=== PATIENT | male | born 1965 | race Caucasian/White ===

== ENCOUNTER 2017-03-27 20:26 | Outpatient (CLI) | payer MEDICARE, MEDICAID | END 2017-03-27 20:27 | disposition critical access hospital (66) | LOC: EMS 20:26 | PROVIDERS: ATTEND Surgery | DX: R56.9 Unspecified convulsions (principal) | CPT/HCPCS: A0425; A0429 ==

== ENCOUNTER 2017-03-27 20:46 | Emergency (ER) | payer MEDICARE, MEDICAID ==
--- NOTE | 2017-03-27 20:54 | ED Physician Documentation ---
PD HPI SEIZURE - Stated complaint Stated Complaint: SEIZURE - Chief complaint Chief Complaint: Neuro - History obtained from History obtained from: Patient, EMS - History of Present Illness Timing - onset: How many minutes ago (45) Witnessed: Witnessed Number of seizures: Single, Lasted minutes (2) Description of seizure activity: Generalized Injury during seizure: Fell, Head injury Associated symptoms: No: Headache, Vision changes, Chest pain History of seizures: Known seizure disorder, Prior TBI Contributing factors: Sleep deprivation Similar symptoms before: Work up / diagnostics, Treatment, Follow up Recently seen: Not recently seen - Additional information Additional information: Patient is 51 year old male with a history of a prior tbi and a seizure disorder on 3 different meds. patient had a witnessed two minute, tonic clonic seizure. According to ems it was witnessed by the patient's partner and lasted about two minutes. Patient states that is he compliant with his meds but states that he has not been sleeping due to the heat. patient states that it is not sleeping at night and only sleeping in the mornings when it is cool. Review of Systems Constitutional: denies: Fever, Chills, Myalgias Eyes: denies: Decreased vision Ears: denies: Ear pain, Drainage/discharge Nose: denies: Rhinorrhea / runny nose, Congestion Throat: denies: Sore throat Cardiac: denies: Chest pain / pressure, Palpitations, Calf pain Respiratory: denies: Cough, Wheezing GI: denies: Nausea, Vomiting : denies: Incontinent Skin: reports: Abrasion (s) Musculoskeletal: reports: Back pain, Extremity pain Neurologic: reports: Syncope, Seizure, Head injury. denies: Generalized weakness Psychiatric: denies: Depressed, Suicidal Immunocompromised: denies: Immunocompromised PD PAST MEDICAL HISTORY - Past Medical History Cardiovascular: Hypertension Respiratory: Other Neuro: Head injury, Seizure disorder Endocrine/Autoimmune: None GI: GERD Psych: Depression Musculoskeletal: Chronic back pain - Past Surgical History Past Surgical History: Yes Neuro: Other - Present Medications Home Medications: Ambulatory Orders Medication Instructions Recorded Confirmed Atenolol [Tenormin] 50 mg PO BID 07/10/13 12/07/15 Bisacodyl [Dulcolax] 5 mg PO DAILY PRN 07/10/13 10/23/14 Divalproex ER [Depakote ER] 1,000 mg PO BID 11/20/13 04/18/16 Phenytoin [Dilantin] 300 mg PO BID 07/10/13 12/07/15 Pregabalin [Lyrica] 150 mg PO BID 07/10/13 12/07/15 oxyCODONE ER [OxyCONTIN] 20 mg PO TID 12/07/15 12/07/15 oxyCODONE [Roxicodone] 5 - 10 mg PO Q4H PRN 12/07/15 12/07/15 - Allergies Allergies/Adverse Reactions: Allergies Allergy/AdvReac Type Severity Reaction Status Date / Time No Known Drug Allergies Allergy Verified 03/27/17 20:52 - Social History Does the pt smoke?: Yes Smoking Status: Current every day smoker Does the pt drink ETOH?: No Does the pt have substance abuse?: Yes - Immunizations Immunizations are current?: Yes PD ED PE NORMAL - Vitals Vital signs reviewed: Yes - General General: Alert and oriented X 3, No acute distress - HEENT HEENT: PERRL, Moist mucous membranes, Dentition benign - Neck Neck: Supple, no meningeal sign, No bony TTP - Cardiac Cardiac: RRR, No murmur - Respiratory Respiratory: No respiratory distress - Abdomen Abdomen: Soft, Non tender, Non distended - Derm Derm: Normal color - Extremities Extremities: No deformity, No edema - Neuro Neuro: Alert and oriented X 3, No motor deficit, No sensory deficit, Normal speech - Psych Psych: Normal mood, Normal affect PD ED PE EXPANDED - HEENT HEENT: Head injury (small abrasions over right eye and left eye, no repairable laceration) Results - Vitals Vitals: Vital Signs - 24 hr 03/27/17 03/27/17 20:47 22:50 Temperature 37 C Heart Rate 70 68 Respiratory 20 18 Rate Blood Pressure 142/75 H 137/77 H O2 Saturation 96 98 Oxygen O2 Source Room air - Labs Labs: Laboratory Tests 03/27/17 03/27/17 03/27/17 21:32 21:32 21:32 WBC 10.4 RBC 4.27 L Hgb 13.8 L Hct 40.7 L MCV 95.4 H MCH 32.4 H MCHC 34.0 RDW 13.2 Plt Count 227 MPV 7.5 Neut # 7.1 H Lymph # 2.3 Ford # 0.7 Eos # 0.2 Baso # 0.1 Absolute Nucleated RBC 0.00 Nucleated RBCs 0.0 Sodium 140 Potassium 3.8 Chloride 109 Carbon Dioxide 24 Anion Gap 7.0 BUN 13 Creatinine 0.7 Estimated GFR (MDRD) 119 Glucose 106 H Calcium 8.6 Phosphorus 4.2 Magnesium 2.2 Total Bilirubin 0.2 AST 29 ALT 38 Alkaline Phosphatase 84 Total Protein 6.3 L Albumin 3.9 Globulin 2.4 Albumin/Globulin Ratio 1.6 Lipase 30 Last Dose Date UNKNOWN Last Dose Time UNKNOWN Phenytoin 5.5 Valproic Acid 31.4 - Rads (name of study) ct head Radiology: Final report received (no acute findings, multiple chronic post traumatic findings) PD MEDICAL DECISION MAKING - ED course Complexity details: reviewed old records, reviewed results, re-evaluated patient , considered differential, d/w patient ED course: Patient was seen and examined at bedside. Patient was awake and alert. IV access was gained and labs were drawn. imaging was ordered. When patient's labs came back he was found to have low levels of dilantin and depakote. patient was treated with dilantin and stated that he would take his depakote at home. Patient had no seizure activities while in the emergency department, and had explainable reasons for his seizures. Patient required no further work up and was stable for discharge with outpatient follow up. Departure - Departure Disposition: 01 Home, Self Care Clinical Impression: Seizure secondary to subtherapeutic anticonvulsant medication Condition: Good Instructions: Epilepsy Meds Follow-Up: Meggan Jacinto MD [Primary Care Provider] - Within 3 Days Comments: It is very important to stay compliant with all of your medications and to get plenty of sleep. those are two very common triggers for recurrent seizures. If your seizures become more frequent you would need to follow up with your pmd/ neurologist for further evaluation and care. You may return to the emergency department at any time for new, worsening or uncontrollable symptoms.
[2017-03-27 21:36] LABS: BASOPHILS # (AUTO) 0.1 10^3/uL (0.0-0.1); EOSINOPHILS # (AUTO) 0.2 10^3/uL (0.0-0.7); EOSINOPHILS % (AUTO) 2.1 %; HCT - HEMATOCRIT 40.7 % (42.0-52.0); HGB - HEMOGLOBIN 13.8 g/dL (14.0-18.0); LYMPHOCYTES # (AUTO) 2.3 10^3/uL (1.5-3.5); LYMPHOCYTES % (AUTO) 22.1 %; MEAN CORPUSCULAR HEMOGLOBIN 32.4 pg (27.0-31.0); MEAN CORPUSCULAR VOLUME 95.4 fL (80.0-94.0); MEAN PLATELET VOLUME 7.5 fL (7.4-11.4); MONOCYTES # (AUTO) 0.7 10^3/uL (0.0-1.0); MONOCYTES % (AUTO) 6.4 %; NEUTROPHILS # (AUTO) 7.1 10^3/uL (1.5-6.6); NEUTROPHILS % (AUTO) 68.4 %; RED BLOOD COUNT 4.27 10^6/uL (4.70-6.10); RED CELL DISTRIBUTION WIDTH 13.2 % (12.0-15.0); UNCORRECTED WHITE BLOOD COUNT 10.4 x10^3/uL; WHITE BLOOD COUNT 10.4 x10^3/uL (4.8-10.8)
[2017-03-27 21:52] LABS: ALBUMIN/GLOBULIN RATIO 1.6 (1.0-2.2); BILIRUBIN,TOTAL 0.2 mg/dL (0.2-1.0); CALCIUM 8.6 mg/dL (8.5-10.3); CREATININE 0.7 mg/dL (0.6-1.2); MAGNESIUM 2.2 mg/dL (1.7-2.8); PHOSPHORUS 4.2 mg/dL (2.5-4.6); POTASSIUM 3.8 mmol/L (3.5-5.0); TOTAL PROTEIN 6.3 g/dL (6.7-8.2)
[2017-03-27] MEDS ORDERED: PHENYTOIN ER 100 MG CAPSULE PO STA (22:10)
[2017-03-27] MEDS ORDERED: PHENYTOIN ER 100 MG CAPSULE ONE (22:18)
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
[2017-03-27 22:51] VITALS: BP 137/77
== END 2017-03-27 23:52 | disposition home or self-care (01) ==
LOC: EDUNIT# → ED 20:46
DX: G40.909 Epilepsy, unspecified, not intractable, without status epilepticus (principal); T42.75XA Adverse effect of unspecified antiepileptic and sedative-hypnotic drugs, initial encounter; S00.212A Abrasion of left eyelid and periocular area, initial encounter; S00.211A Abrasion of right eyelid and periocular area, initial encounter; W18.30XA Fall on same level, unspecified, initial encounter; W22.09XA Striking against other stationary object, initial encounter; Y93.89 Activity, other specified; I10 Essential (primary) hypertension; F17.200 Nicotine dependence, unspecified, uncomplicated; Z87.820 Personal history of traumatic brain injury
CPT/HCPCS: 36415; 70450; 80053; 80164; 80185; 83690; 83735; 84100; 85025; 99284; A9270

== ENCOUNTER 2018-01-30 16:23 | Outpatient (CLI) | payer MEDICARE, MEDICAID | END 2018-01-30 16:24 | disposition critical access hospital (66) | LOC: EMS 16:23 | PROVIDERS: ATTEND Surgery | DX: R56.9 Unspecified convulsions (principal) | CPT/HCPCS: A0425; A0427 ==

== ENCOUNTER 2018-01-30 16:44 | Emergency (ER) | payer MEDICARE, MEDICAID ==
[2018-01-30] MEDS ORDERED: SODIUM CHLORIDE 0.9% 1,000 ML IV ONE (16:49)
--- NOTE | 2018-01-30 16:59 | ED Physician Documentation ---
PD HPI SEIZURE - Stated complaint Stated Complaint: SZ - Chief complaint Chief Complaint: Neuro - History obtained from History obtained from: EMS - History of Present Illness Timing - onset: Today (52-year-old gentleman brought in by EMS, he has a history of seizures but I am unable to figure out when his last seizure was, I guess he had several [id number] seizures today. He is unaccompanied except by EMS on arrival and the patient cannot give a history on her on arrival because of his altered mental status. He is on Depakote, and Dilantin. He received 5 mg of Versed IM prior to arrival and has not had any further seizure activity since but he is still very postictal.) Review of Systems Unable to obtain: Confused PD PAST MEDICAL HISTORY - Past Medical History Cardiovascular: Hypertension Respiratory: Other Endocrine/Autoimmune: None GI: GERD Psych: Depression Musculoskeletal: Chronic back pain - Past Surgical History Past Surgical History: Yes Neuro: Other - Present Medications Home Medications: Ambulatory Orders Medication Instructions Recorded Confirmed Atenolol [Tenormin] 50 mg PO BID 07/10/13 12/07/15 Bisacodyl [Dulcolax] 5 mg PO DAILY PRN 07/10/13 10/23/14 Divalproex ER [Depakote ER] 1,000 mg PO BID 07/10/13 12/07/15 Phenytoin [Dilantin] 300 mg PO BID 07/10/13 12/07/15 Pregabalin [Lyrica] 150 mg PO BID 07/10/13 12/07/15 oxyCODONE ER [OxyCONTIN] 20 mg PO TID 12/07/15 12/07/15 oxyCODONE [Roxicodone] 5 - 10 mg PO Q4H PRN 12/07/15 12/07/15 - Allergies Allergies/Adverse Reactions: Allergies Allergy/AdvReac Type Severity Reaction Status Date / Time No Known Drug Allergies Allergy Verified 03/27/17 20:52 - Social History Does the pt smoke?: Yes Smoking Status: Current every day smoker Does the pt drink ETOH?: No Does the pt have substance abuse?: Yes - Immunizations Immunizations are current?: Yes - POLST Patient has POLST: No PD ED PE NORMAL - Vitals Vital signs reviewed: Yes - General General: Other (He rouses to pain and loud voice but is nonverbal and uncooperative on arrival.) - HEENT HEENT: PERRL, Pharynx benign (The paramedics thought they saw some blood from the mouth, he is not cooperating by sticking out his tongue, but at least anteriorly I see no tongue laceration.) - Neck Neck: Supple, no meningeal sign, No bony TTP - Cardiac Cardiac: RRR, No murmur - Respiratory Respiratory: No respiratory distress, Clear bilaterally - Abdomen Abdomen: Non tender - Neuro Eye Opening: To Pain Motor: Withdraws to Pain Verbal: Confused GCS Score: 10 Results - Vitals Vitals: Vital Signs - 24 hr 01/30/18 01/30/18 01/30/18 16:50 17:07 19:18 Temperature 36.1 C L Heart Rate 82 78 65 Respiratory 18 18 18 Rate Blood Pressure 146/87 H 133/82 H O2 Saturation 98 95 100 01/30/18 01/30/18 21:48 22:33 Temperature 35.9 C L 36.6 C Heart Rate 74 82 Respiratory 18 16 Rate Blood Pressure 128/79 122/68 O2 Saturation 99 98 Oxygen O2 Source Room air - Labs Labs: Laboratory Tests 01/30/18 01/30/18 16:58 16:58 WBC 8.1 RBC 4.75 Hgb 15.3 Hct 46.9 MCV 98.8 H MCH 32.3 H MCHC 32.7 RDW 13.2 Plt Count 261 MPV 7.2 L Neut # (Auto) 6.0 Lymph # (Auto) 1.5 Mccreary # (Auto) 0.4 Eos # (Auto) 0.1 Baso # (Auto) 0.1 Absolute Nucleated RBC 0.01 Nucleated RBC % 0.1 Sodium 138 Potassium 3.8 Chloride 105 Carbon Dioxide 16 L Anion Gap 17.0 H BUN 15 Creatinine 1.1 Estimated GFR (MDRD) 70 L Glucose 107 H Calcium 8.9 Total Bilirubin 0.4 AST 31 ALT 22 Alkaline Phosphatase 89 Total Protein 7.3 Albumin 4.0 Globulin 3.3 Albumin/Globulin Ratio 1.2 Lipase 35 Last Dose Date unknown Last Dose Time unknown Phenytoin 4.0 Valproic Acid 23.6 - Rads (name of study) CT Head Radiology: EMP read contemporaneously (NAD) PD MEDICAL DECISION MAKING - ED course ED course: 52-year-old gentleman who had status epilepticus at home which was stopped with the administration of Versed prior to arrival but now is sleepy and postictal here. Both his phenytoin and Depakote levels are low and he is given doses IV as calculated. The phenytoin went in, but prior to the Depakote going all the way and the patient was being uncooperative and pulled out his IV. I guess he was difficult for IV access, and was still complaining of a headache which were he was medicated for. Given the fact that he went several hours without further seizure activity, the remainder of the Depakote was given orally. Otherwise his mental status had returned to normal and was so for several hours. - Sepsis Event Vital Signs: Vital Signs - 24 hr 01/30/18 01/30/18 01/30/18 16:50 17:07 19:18 Temperature 36.1 C L Heart Rate 82 78 65 Respiratory 18 18 18 Rate Blood Pressure 146/87 H 133/82 H O2 Saturation 98 95 100 01/30/18 01/30/18 21:48 22:33 Temperature 35.9 C L 36.6 C Heart Rate 74 82 Respiratory 18 16 Rate Blood Pressure 128/79 122/68 O2 Saturation 99 98 Oxygen O2 Source Room air Departure - Departure Disposition: 01 Home, Self Care Clinical Impression: Seizure secondary to subtherapeutic anticonvulsant medication Condition: Good Record reviewed to determine appropriate education?: Yes Instructions: ED Seizure Recurrent Comments: Take your medications as prescribed, follow-up with your neurologist, next available appointment. Let him or her know that your Dilantin level today was 4.0, and your Depakote level was 23.6, both subtherapeutic. Discharge Date/Time: 01/30/18 22:33
[2018-01-30 17:02] LABS: BASOPHILS # (AUTO) 0.1 10^3/uL (0.0-0.1); BASOPHILS % (AUTO) 0.9 %; EOSINOPHILS # (AUTO) 0.1 10^3/uL (0.0-0.7); EOSINOPHILS % (AUTO) 0.8 %; HGB - HEMOGLOBIN 15.3 g/dL (14.0-18.0); LYMPHOCYTES # (AUTO) 1.5 10^3/uL (1.5-3.5); LYMPHOCYTES % (AUTO) 18.8 %; MEAN CORPUSCULAR HEMOGLOBIN 32.3 pg (27.0-31.0); MEAN CORPUSCULAR HGB CONC 32.7 g/dL (32.0-36.0); MEAN CORPUSCULAR VOLUME 98.8 fL (80.0-94.0); MEAN PLATELET VOLUME 7.2 fL (7.4-11.4); MONOCYTES # (AUTO) 0.4 10^3/uL (0.0-1.0); MONOCYTES % (AUTO) 5.5 %; PLT - PLATELET COUNT 261 10^3/uL (130-450); RED BLOOD COUNT 4.75 10^6/uL (4.70-6.10); RED CELL DISTRIBUTION WIDTH 13.2 % (12.0-15.0); WHITE BLOOD COUNT 8.1 x10^3/uL (4.8-10.8)
[2018-01-30 17:20] LABS: ALBUMIN/GLOBULIN RATIO 1.2 (1.0-2.2); ALKALINE PHOSPHATASE 89 IU/L (42-121); ALT ALANINE AMINOTRANSFERASE 22 IU/L (10-60); AST ASPARTATE AMINOTRANSFERASE 31 IU/L (10-42); BILIRUBIN,TOTAL 0.4 mg/dL (0.2-1.0); BUN - BLOOD UREA NITROGEN 15 mg/dL (6-20); CALCIUM 8.9 mg/dL (8.5-10.3); CARBON DIOXIDE - CO2 16 mmol/L (21-32); CHLORIDE 105 mmol/L (101-111); CREATININE 1.1 mg/dL (0.6-1.2); GFR - MDRD 70 (>89); GLUCOSE 107 mg/dL (70-100); LIPASE 35 U/L (22-51); SODIUM 138 mmol/L (135-145); TOTAL PROTEIN 7.3 g/dL (6.7-8.2); VALPROIC ACID (DEPAKOTE) 23.6 ug/mL
[2018-01-30] MEDS ORDERED: PHENYTOIN INJ 300 MG in SODIUM CHLORIDE 0.9% 100ML 100 ML IV STA (17:25)
[2018-01-30] MEDS ORDERED: SODIUM CHLORIDE 0.9% IV STA (17:26)
[2018-01-30] MEDS ORDERED: VALPROATE IV STA (17:26)
[2018-01-30] MEDS ORDERED: IBUPROFEN 800 MG TABLET PO STA (18:08)
[2018-01-30] MEDS ORDERED: ONDANSETRON ODT 4 MG TABLET TL STA ×2 (18:19→21:40)
--- NOTE | 2018-01-30 19:29 | CT Report ---
Procedure Date: 01/30/2018 Accession Number: [id number] / [id number] Procedure: CT - Head W/O CPT Code: FULL RESULT: EXAM: CT HEAD. EXAM DATE: 01/30/2018 07:17 PM. CLINICAL HISTORY: Sz, poss head injury. COMPARISON: 03/27/2017. TECHNIQUE: Multiaxial CT images were obtained from the foramen magnum to the vertex. Reformats: Coronal. IV contrast: None. In accordance with CT protocol optimization, one or more of the following dose reduction techniques were utilized for this exam: automated exposure control, adjustment of mA and/or KV based on patient size, or use of iterative reconstructive technique. FINDINGS: Parenchyma: No intraparenchymal hemorrhage. No evidence of new mass, midline shift, or CT findings of acute infarction. Rowe-white differentiation is distinct. Redemonstration of a large right frontal and temporal lobe infarct. No new infarct is noted. Extraaxial Spaces: Normal for age. No subdural or epidural collections identified. Ventricles: Normal in size and position. Sinuses and Orbits: Mucosal thickening is present throughout the ethmoid sinuses. otherwise, the remaining paranasal sinuses, orbits, and mastoids show no significant abnormality. Bones: Patient is status post right frontal and temporal craniotomy. Old right nasal bone fracture. Other: No acute depressed calvarial fracture or bone lesion. IMPRESSION: 1. Stable appearance of the right frontal and temporal lobe encephalomalacia. 2. No acute intracranial abnormality. 3. No new calvarial fracture. Previous right frontal and temporal craniotomy. [facility]
[2018-01-30] MEDS ORDERED: DIVALPROEX DR 125 MG TABLET PO STA (21:39)
[2018-01-30] MEDS ORDERED: HYDROmorphone 2 MG/ML VIAL IM STA (21:40)
[2018-01-30 22:37] VITALS: BP 122/68
== END 2018-01-30 22:33 | disposition home or self-care (01) ==
LOC: EDBD → EDUNIT# → ED 16:44
DX: R56.9 Unspecified convulsions (principal); T42.6X6A Underdosing of other antiepileptic and sedative-hypnotic drugs, initial encounter; T42.0X6A Underdosing of hydantoin derivatives, initial encounter; I10 Essential (primary) hypertension; F17.200 Nicotine dependence, unspecified, uncomplicated; Z79.891 Long term (current) use of opiate analgesic
CPT/HCPCS: 36415; 70450; 80053; 80164; 80185; 83690; 85025; 96365; 96367; 96372; 99284; A9270; J1170; Q0162

== ENCOUNTER 2018-07-24 11:29 | Emergency (ER) | payer MEDICARE, MEDICAID ==
[2018-07-24 11:40] VITALS: BP 143/90
[2018-07-24] MEDS ORDERED: ASPIRIN CHEW 81 MG TABLET PO STA (12:10)
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
== END 2018-07-24 12:20 | disposition home or self-care (01) ==
LOC: ED 11:29
DX: T69.022A Immersion foot, left foot, initial encounter (principal); T69.021A Immersion foot, right foot, initial encounter; I10 Essential (primary) hypertension; F17.200 Nicotine dependence, unspecified, uncomplicated
CPT/HCPCS: 99282; A9270